=== PATIENT | female | born 1995 | race African-American/Black ===

== ENCOUNTER 2024-08-02 04:11 | Emergency (ER) | payer SELFPAY ==
[2024-08-02 04:17] VITALS: BP 114/86
[2024-08-02 04:32] LABS: % Basophils 0.3 % (0-2); % Immature Granulocytes 0.3 % (0-0.5); % Lymphocytes 7.9 % (20.5-51.1); % Monocytes 4.7 % (1.7-9.3); % Neutrophils 86.8 % (42.2-75.2); Absolute Lymphocytes 0.9 10^3/uL (1.2-3.4); Absolute Monocytes 0.5 10^3/uL (0.1-0.6); Absolute Neutrophils 9.9 10^3/uL (1.4-6.5); Hematocrit 37.7 % (37.0-47.0); Hemoglobin 12.4 g/dL (12.0-16.0); Mean Corp Hgb Conc. 32.9 g/dL (33.0-37.0); Mean Corpuscular Hgb 26.7 pg (27.0-31.0); Mean Corpuscular Volume 81.1 fL (81.0-99.0); Mean Platelet Volume 10.6 fL (7.4-10.4); Nucleated Red Blood Cells % 0 %; Platelet Count 246 10^3/uL (130-400); Red Blood Cell Count 4.65 10^6/uL (4.20-5.40); Red Cell Dist. Width 12.8 % (11.5-14.5); White Blood Cell Count 11.4 10^3/uL (4.8-10.8)
[2024-08-02 05:01] LABS: ALT (SGPT) 21 U/L (0-35); AST (SGOT) 22 U/L (14-36); Alkaline Phosphatase 61 U/L (38-126); Blood Urea Nitrogen 10 mg/dl (7-17); Calcium 9.5 mg/dl (8.4-10.2); Carbon Dioxide 24 mmol/L (22-30); Chloride 102 mmol/L (98-107); Glucose 137 mg/dl (70-99); Lipase 55 U/L (23-300); Potassium 4.2 mmol/L (3.5-5.1); Sodium 139 mmol/L (135-145); Total Bilirubin 0.8 mg/dl (0.2-1.3); Total Protein 7.7 g/dl (6.3-8.2)
[2024-08-02 05:07] LABS: HCG, Serum Qualitative Screen Negative
[2024-08-02 05:11] LABS: eGFR > 60.00
--- NOTE | 2024-08-02 07:33 | ED.GENMED ---
History of Present Illness
General
Chief Complaint: Abdominal Symptoms
Time Seen by Provider: 08/02/24 07:33
History of Present Illness
History of Present Illness:
29-year-old female presents to the emergency department for evaluation of nausea vomiting and diarrhea beginning today. Unable to tolerate p.o. fluids. Reports crampy abdominal pain, no fevers or chills. No ill contacts. No prior abdominal
surgeries
Past History
Past History
ED Past Medical History: None
ED Past Surgical History: None
Review of Systems
Review of Systems
Allergies reviewed?: Yes
All Other Systems: ROS reviewed and negative except as documented in HPI and ROS
Phy Exam
Physical Exam
Physical Exam:
GEN: Well appearing, NAD, WDWN
HEENT: Oral mucosa moist, no scleral icterus
Cardiac: Tachycardic, regular
Lung: No respiratory distress, no tachypnea
MSK: No gross deformity or injuries
Skin: Good color, no pallor or jaundice, no rashes
Neuro: AO x3, moves all extremities freely
Psych: Calm, cooperative
Course
Orders/Labs/Results
Orders:
Orders
08/02/24 04:19
Test Result ONCE
08/02/24 04:24
Complete Blood Count/With Diff Urgent
Comprehensive Metabolic Panel Urgent
HCG, Serum Qualitative Screen Urgent
Lipase Urgent
08/02/24 07:33
0.9% Sodium Chloride 1000 ml [Nss] 1,000 ml IV BOLUS
Ondansetron Injectable [Zofran] 4 mg IV NOW STA
Abnormal Lab Results
08/02/24
04:24
WBC 11.4 H 10^3/uL
(4.8-10.8)
MCH 26.7 L pg
(27.0-31.0)
MCHC 32.9 L g/dL
(33.0-37.0)
MPV 10.6 H fL
(7.4-10.4)
Absolute Neuts (auto) 9.9 H 10^3/uL
(1.4-6.5)
Absolute Lymphs (auto) 0.9 L 10^3/uL
(1.2-3.4)
Neutrophils % 86.8 H %
(42.2-75.2)
Lymphocytes % 7.9 L %
(20.5-51.1)
Glucose 137 H mg/dl
(70-99)
08/02/24 04:24
08/02/24 04:24
Vital Signs
Initial and Last Documented VS:
Initial Vital Signs
Temp Pulse Resp BP Pulse Ox
98.7 F 96 16 114/86 100
08/02/24 04:17 08/02/24 04:17 08/02/24 04:17 08/02/24 04:17 08/02/24 04:17
Last Documented Vital Signs
Temp Pulse Resp BP Pulse Ox
98.7 F 96 16 114/86 100
08/02/24 04:17 08/02/24 04:17 08/02/24 04:17 08/02/24 04:17 08/02/24 04:17
MDM/Problems Addressed
MDM/Problems Addressed:
Labs reassuring, patient treated with IV fluids and antiemetics with improvement, discussed supportive care
*Critical Care Note
Total Time (30-74mins, 75-104mins- exclusive of procedures): Not Applicable
ED Attending Note
-
Portions of this chart may have been created with voice recognition software.� Occasional wrong word or��sound alike� substitutions may have occurred due to the inherent limitations of voice recognition software.
Discharge Plan
Departure
Patient Disposition: Home (Routine Discharge)
Date of Disposition: 08/02/24
Time of Disposition: 08:51
Patient with high blood pressure during this ER visit?: No
Discharge Problem:
Gastroenteritis
Instructions: Nausea and Vomiting, Adult (DC)
Prescriptions:
New
ondansetron 4 mg tablet,disintegrating
4 mg PO TIDPRN PRN (Reason: nausea/vomiting) Qty: 10 0RF
No Action
multivitamin with folic acid [Tab-A-Billy] 1 TABLET tablet
1 tab PO DAILY
Referrals:
Deb Haile MD [Family Provider] -
Interventions
Interventions:
*General Assessment Last Done: 08/02/24 04:17
*Nursing Disposition Last Done: 08/02/24 09:07
Discharge Date and Time
Discharge Date/Time: 08/02/24 09:08
Print Language: INDONESIAN
[2024-08-02] MEDS: ZOFRAN 4 MG IV (07:47)
[2024-08-02] MEDS: NSS 1000 IV (07:48)
== END 2024-08-02 09:08 | disposition home or self-care (01) ==
LOC: EMR 04:11
PROVIDERS: Student in an Organized Health Care Education/Training Program; EMERGENCY PHYSICIAN Emergency Medicine; FAMILY PHYSICIAN Family Medicine
DX: K52.9 Noninfective gastroenteritis and colitis, unspecified (principal)
CPT/HCPCS: 99283; 96374; 96361; 80053; 83690; 84703; 85025